=== PATIENT | female | born 1985 | race Caucasian/White ===

== ENCOUNTER 2019-06-25 12:39 | Emergency (ER) | payer OTHER ==
--- NOTE | 2019-06-25 12:59 | UC ---
Elbow Pain - HPI Summary HPI Summary: 33 yo female presents with LEFT elbow pain. 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 Today noticed some swelling and redness to the left elbow. She went to [facility] this morning and they told dx'd her with bursitis and advised to ice and take ibuprofen. She has not iced or taken ibuprofen since that time. She continued working today and thinks her elbow has gotten more swollen. Denies numbness or tingling. - History of Current Complaint Stated Complaint: ELBOW INJURY Time Seen by Provider: 06/25/19 12:59 Hx Obtained From: Patient Severity Initially: Mild Severity Currently: Mild Pain Intensity: 4 Pain Scale Used: 0-10 Numeric - Allergies/Home Medications Allergies/Adverse Reactions: Allergies Allergy/AdvReac Type Severity Reaction Status Date / Time No Known Allergies Allergy Verified 06/25/19 13:01 Home Medications: Home Medications Budesonide [Uceris] 9 mg PO DAILY 06/25/19 [History Confirmed 06/25/19] Mesalamine [Lialda] 2 tab PO DAILY 06/25/19 [History Confirmed 06/25/19] PMH/Surg Hx/FS Hx/Imm Hx - Additional Past Medical History Additional PMH: UC - Surgical History Surgical History: None - Family History Known Family History: Positive: Non-Contributory - Social History Occupation: Student Lives: With Family Alcohol Use: Occasionally Substance Use Type: None Smoking Status (MU): Never Smoked Tobacco Review of Systems All Other Systems Reviewed And Are Negative: No Constitutional: Positive: Negative Skin: Positive: Negative Respiratory: Positive: Negative Cardiovascular: Positive: Negative Neurovascular: Positive: Negative Musculoskeletal: Positive: Other: - Left elbow swelling and redness Neurological: Positive: Negative Psychological: Positive: Negative Physical Exam - Summary Physical Exam Summary: GENERAL: NAD. WDWN. No pain distress. SKIN: No rashes, sores, lesions, or open wounds. CHEST: No accessory muscle use. Breathing comfortably and in no distress. CV: Pulses intact radial and ulnar. Cap refill <2seconds MSK: LEFT ELBOW: FROM. Very mild edema and erythema about left elbow bursae. Slight TTP. Strength 5/5 including automatic bandsaw tender strength. No open wounds. NEURO: Alert. Sensations intact hand and all fingers. PSYCH: Age appropriate behavior. Triage Information Reviewed: Yes Vital Signs: Vital Signs: Temp Pulse Resp BP Pulse Ox 98.5 F 82 16 124/74 97 06/25/19 12:55 06/25/19 12:55 06/25/19 12:55 06/25/19 12:55 06/25/19 12:55 Vital Signs Reviewed: Yes Elbow Pain Course/Dx - Course Course Of Treatment: Suspect bursitis. Will rx for naproxen. Elbow was ALBERTO wrapped today and advised to rest and apply ice to the area. - Differential Dx/Diagnosis Provider Diagnosis: Olecranon bursitis, left elbow Discharge ED - Sign-Out/Discharge Documenting (check all that apply): Patient Departure All imaging exams completed and their final reports reviewed: No Studies - Discharge Plan Condition: Stable Disposition: HOME Prescriptions: Naproxen [Naproxen 500 mg tab] 500 mg PO BID #14 tablet. Patient Education Materials: Elbow Bursitis (ED) Referrals: No Primary Care Phys,NOPCP [Primary Care Provider] - Additional Instructions: If you develop a fever, shortness of breath, chest pain, new or worsening symptoms - please call your PCP or go to the ED immediately. Rest and apply ice to your elbow to reduce pain and swelling - Billing Disposition and Condition Condition: STABLE Disposition: Home
[2019-06-25 13:01] VITALS: BP 124/74
== END 2019-06-25 13:21 | disposition home or self-care (01) ==
LOC: UCEAST 12:39
DX: M70.22 Olecranon bursitis, left elbow (principal)
CPT/HCPCS: 99202; G0463